=== PATIENT | female | born 1980 | race Asian ===

== ENCOUNTER 2016-07-16 12:00 | Emergency (ER) | payer BC, OTHER ==
[2016-07-16 12:05] VITALS: BP 105/73; PULSE 98; TEMP 98.3; BMI 19.2
--- NOTE | 2016-07-16 12:10 | PDOC ---
History of Present Illness - General Chief Complaint: Nausea/Vomiting Stated Complaint: NAUSEA, VOMITING, HEADACHE Time Seen by Provider: 07/16/16 12:04 History Source: Patient Exam Limitations: No Limitations - History of Present Illness Initial Comments: 07/16/16 12:53 This is a 35 yo F presenting to the ER with a complaint of nausea, vomiting, diarrhea The patient states that her symptoms began last night She has vomited a total of 8 times (non bloody, non bilious) No fevers or chills Pt denies abdominal pain Pt denies diarrhea No recent travel No ill contacts No change in diet PMH: denies PSH: denies Meds: denies ALL: NKDA Social: denies alcohol, drug or cigarette use, works as a [employer] nurse GENERAL/CONSTITUTIONAL: No: fever, chills, weakness, loss of appetite. HEAD, EYES, EARS, NOSE AND THROAT: No: change in vision, ear pain, discharge, sore throat, throat swelling. CARDIOVASCULAR: No: chest pain, lightheadedness, palpitations, syncope RESPIRATORY: No: cough, shortness of breath, wheezing, hemoptysis, stridor. GASTROINTESTINAL: Yes: nausea, vomiting, No: diarrhea, abdominal pain GENITOURINARY: No: dysuria, hematuria, frequency, urgency, flank pain. MUSCULOSKELETAL: No: back pain, neck pain, joint pain, muscle swelling or pain SKIN: No: lesions, pallor, rash or easy bruising. NEUROLOGIC: No: headache, vertigo, paresthesias, weakness ENDOCRINE: No: unexplained weight gain or loss HEMATOLOGIC/LYMPHATIC: No: anemia, easy bleeding, swelling nodes. GENERAL: The patient is in no acute distress. HEAD: Normal with no signs of trauma. EYES: PERRLA, EOMI, sclera anicteric, conjunctiva clear. ENT: Ears normal, nares patent, oropharynx clear without exudates. Very dry mucous membranes. NECK: Normal range of motion, supple without lymphadenopathy, JVD, or masses. LUNGS: Breath sounds equal, clear to auscultation bilaterally. No wheezes, and no crackles. HEART:Regular rate and rhythm, normal S1 and S2 without murmur, rub or gallop. ABDOMEN: Soft, minimal luq tenderness, NO epigastric tenderness. No guarding, no rebound. No RLQ tenderness. EXTREMITIES: Normal range of motion, no edema. No clubbing or cyanosis. No erythema, or tenderness. NEUROLOGICAL: Cranial nerves II through XII grossly intact. Normal speech. No focal neurological deficits. MUSCULOSKELETAL: Back non-tender to palpation, no CVA tenderness SKIN: Warm, Dry, normal turgor, no rashes or lesions noted. 07/16/16 13:01 Past History - Past Medical History Allergies/Adverse Reactions: Allergies Allergy/AdvReac Type Severity Reaction Status Date / Time No Known Allergies Allergy Verified 07/16/16 12:01 Home Medications: Ambulatory Orders Ondansetron HCl [Zofran] 4 mg PO BID PRN #14 tablet 07/16/16 Other medical history: MIGRAINE HEADACHES - Psycho/Social/Smoking Cessation Hx Anxiety: No Suicidal Ideation: No Smoking History: Never smoked Hx Alcohol Use: No Drug/Substance Use Hx: No Substance Use Type: None *Physical Exam - Vital Signs Last Vital Signs Temp Pulse Resp BP Pulse Ox 98.3 F 98 H 18 105/73 98 07/16/16 12:00 07/16/16 12:00 07/16/16 12:00 07/16/16 12:00 07/16/16 12:00 ED Treatment Course - LABORATORY CBC & Chemistry Diagram: 07/16/16 13:20 07/16/16 13:20 Medical Decision Making - Medical Decision Making 07/16/16 13:02 DD: includes but is not limited to gastritis, gastroenteritis, pancreatitis, biliary pathology less likely Will do basic labs Will hydrate Will give Zofran Will re assess 07/16/16 14:04 Laboratory Tests 07/16/16 07/16/16 07/16/16 12:40 13:20 13:20 WBC 7.7 Hgb 13.5 Hct 40.7 Plt Count 238 Neutrophils % 88.3 H Lymphocytes % 6.8 L Sodium 133 L Potassium 3.8 Chloride 100 Carbon Dioxide 27 BUN 16 Creatinine 0.7 Random Glucose 105 Total Amylase 101 Lipase 27 Urine Blood 3+ H Urine Nitrite Negative Ur Leukocyte Esterase Negative Urine RBC 10-20 Urine WBC 0-3 Given 1 L NS Will give another 1 L NS Pt po challenged with gingerale Tolerated this with no vomiting Pt stable to go home Pt asked to return to the ER for any other concerns or complaints Clinical Impression: gastritis, vomiting, dehydration *DC/Admit/Observation/Transfer Diagnosis at time of Disposition: Gastritis Qualifiers: Gastritis type: unspecified gastritis Chronicity: acute Gastritis bleeding: without bleeding Qualified Code(s): K29.00 - Acute gastritis without bleeding Vomiting Qualifiers: Vomiting type: unspecified Vomiting Intractability: non-intractable - Discharge Dispostion Disposition: HOME Condition at time of disposition: Stable Admit: No - Prescriptions Prescriptions: Ondansetron HCl [Zofran] 4 mg PO BID PRN #14 tablet PRN Reason: Nausea - Referrals Referrals: Janes Santillan MD [Primary Care Provider] - - Patient Instructions Printed Discharge Instructions: DI for Vomiting -- Adult Additional Instructions: Ms. Lin I am sorry that you are having these symptoms today, vomiting and nausea Please take medications as prescribed Please monitor yourself for fevers or chills Please monitor yourself for abdominal tenderness in the lower abdomen Return to the ER for any other concerns or complaints - Post Discharge Activity Work/School Note: Back to Work
[2016-07-16 12:55] LABS: URINE APPEARANCE Cloudy; URINE BILIRUBIN Negative (NEGATIVE); URINE BLOOD 3+ (NEGATIVE); URINE COLOR YELLOW; URINE GLUCOSE (UA) Negative (NEGATIVE); URINE KETONE 1+ (NEGATIVE); URINE LEUK ESTERASE Negative (NEGATIVE); URINE NITRITE Negative (NEGATIVE); URINE PROTEIN 2+ (NEGATIVE); URINE UROBILINOGEN 1.0 E.U/dl (0.2-1.0)
[2016-07-16 12:56] LABS: URINE WBC 0-3 (3-5)
[2016-07-16 12:57] LABS: URINE BACTERIA FEW /hpf (NEGATIVE)
[2016-07-16 12:58] LABS: RED BLOOD CELL CAST 0-3; URINE MUCUS FEW
[2016-07-16] MEDS ORDERED: ONDANSETRON 4 MG/2 ML VIAL IVPUSH ONE (13:00)
[2016-07-16] MEDS ORDERED: FAMOTIDINE 20 MG/50 ML IVPB 50 ML IVPB ONE ×2 (13:00→13:09)
[2016-07-16] MEDS ORDERED: SODIUM CHLORIDE 1,000 ML IV STA ×2 (13:00→14:02)
[2016-07-16] MEDS ORDERED: ONDANSETRON 4 MG/2 ML VIAL ONE (13:09)
[2016-07-16 13:38] LABS: BASOPHIL 0.4 % (0-2.0); EOSINOPHIL 0.8 % (0-4.5); MCH 29.3 pg (25.7-33.7); MCHC 33.2 g/dl (32.0-36.0); MEAN CELL VOLUME 88.4 fl (80-96); NEUTROPHILS 88.3 % (42.8-82.8); PLATELET COUNT 238 K/MM3 (134-434); RDW 11.5 % (11.6-15.6); WHITE BLOOD COUNT 7.7 K/mm3 (4.0-10.0)
[2016-07-16 13:59] LABS: ALBUMIN 4.1 g/dl (3.5-5.0); ALK PHOS 57 U/L (32-92); AMYLASE 101 U/L (25-125); ANION GAP 6 (8-16); CALCIUM 8.8 mg/dl (8.4-10.2); CO2 27 mmol/L (22-28); CREATININE 0.7 mg/dl (0.6-1.3); GLUCOSE,RANDOM 105 mg/dl (74-106); SGOT/AST 35 U/L (10-42); SGPT/ALT 26 U/L (10-40); TOT PROT 7.6 g/dl (6.4-8.3)
== END 2016-07-16 15:50 | disposition home or self-care (01) ==
LOC: FER 12:00
PROC: 3E033GC Introduction of Other Therapeutic Substance into Peripheral Vein, Percutaneous Approach (ICD-10-PCS; principal; 2016-07-16)
PROC: 3E0337Z Introduction of Electrolytic and Water Balance Substance into Peripheral Vein, Percutaneous Approach (ICD-10-PCS; 2016-07-16)
DX: K29.00 Acute gastritis without bleeding (principal)
CPT/HCPCS: 36415; 80053; 81003; 81015; 82150; 83690; 84703; 85025; 87086; 99285-25